=== PATIENT | female | born 1980 | race Caucasian/White ===

== ENCOUNTER → 2019-09-04 | Outpatient (CLI) | payer OTHER ==
--- NOTE | 2019-09-04 09:53 | REPMRS ---
Patient History The patient states she has not had a clinical breast exam in over a year. No known family history of cancer. Taking unspecified hormones for 9 years 6 months. The [facility] lifetime risk for breast cancer is 13.7%. Digital Mammo Screening Bilat: September 04, 2019 - Exam #: [id number] Bilateral CC and MLO view(s) were taken. Technologist: Pattie Dixon, Technologist No prior studies available for comparison. FINDINGS: The breast tissue is heterogeneously dense. This may lower the sensitivity of mammography. There is no evidence of cancer on this mammogram. Assessment: BI-RADS/ACR category 2 mammogram. Benign Findings. Recommendation Routine screening mammogram of both breasts in 1 year (for women over age 40). This mammogram was interpreted with the aid of an FDA-approved computer-aided dectection system. Electronically Signed By: Juan Jose Garcia MD 09/04/19 0953
== END ==
LOC: M RAD 09:20
PROVIDERS: ATTEND Nurse Practitioner Primary Care
DX: Z12.31 Encounter for screening mammogram for malignant neoplasm of breast (principal)